=== PATIENT | female | born 1970 ===

== ENCOUNTER 2017-03-18 21:52 | Emergency (ER) | payer SELFPAY ==
[2017-03-18 22:03] VITALS: BP 119/82; PULSE 68; RESP 20; TEMP 98.1; O2SAT 100
[2017-03-18] MEDS ORDERED: Naproxen 550 mg Tab PO STA (22:46)
[2017-03-18] MEDS ORDERED: Naproxen 550 mg Tab PO ONE (22:49)
[2017-03-18 23:04] LABS: RBC URINE 9 /hpf (0-3); URINE BACTERIA MOD (<OCC); URINE BILIRUBIN NEGATIVE (NEGATIVE); URINE BLOOD 2+ (NEGATIVE); URINE COLOR Straw (YELLOW); URINE GLUCOSE (UA) NORMAL (Normal); URINE KETONE NEGATIVE (NEGATIVE); URINE LEUKOCYTE ESTERASE 3+ Leu/uL (Negative); URINE PROTEIN 1+ mg/dL (NEGATIVE); URINE UROBILINOGEN NORMAL mg/dL (0.2-1.0); WBC URINE 50 /hpf (0-5)
--- NOTE | 2017-03-18 23:09 | C.PDOC ---
History Of Present Illness Patient is a 46 y/o female presents to the ER with complaints of dysuria, urinary frequency, and lower abdominal pain that started at 4 pm. Patient states pain is similar to last time when she was diagnosed with kidney stone. Pt states pain radiates to the back. Pt denies any vaginal bleeding, vaginal discharge, fever, n/v/d, or any other associated symptoms at this time. Time Seen by Provider: 03/18/17 22:25 Chief Complaint (Nursing): Abdominal Pain History Per: Patient, [employer] History/Exam Limitations: language barrier Past Medical History Vital Signs: Last Vital Signs Temp 98.1 F 03/18/17 22:00 Pulse 68 03/18/17 22:00 Resp 20 03/18/17 22:00 BP 119/82 03/18/17 22:00 Pulse Ox 100 03/18/17 23:20 - Medical History PMH: Anemia, Gastritis, Kidney Stones, Migraine Denies: Chronic Kidney Disease Surgical History: Endoscopy - [facility] Procedures ANESTH INJECT-SPIN CANAL (02/26/15) BILAT ENDOS OCC TUBE NEC (07/25/15) CERVICAL SPINE X-RAY NEC (02/26/15) COLONOSCOPY (03/01/15) ESOPHAGOGASTRODUODENOSCOPY [EGD] W/CLOSED BIOPSY (03/01/15) INJECT STEROID (02/26/15) OTHER SKIN & SUBQ I D (07/19/14) REMOVAL IUD (07/25/15) SPINAL CANAL INJECT NEC (02/26/15) Family History: States: Unknown Family Hx - Social History Hx Tobacco Use: No Hx Alcohol Use: No Hx Substance Use: No - Immunization History Hx Tetanus Toxoid Vaccination: No Hx Influenza Vaccination: Yes Hx Pneumococcal Vaccination: No Review Of Systems Except As Marked, All Systems Reviewed And Found Negative. Gastrointestinal: Positive for: Abdominal Pain Genitourinary: Positive for: Dysuria, Frequency Physical Exam - Physical Exam Appears: Well, Non-toxic, No Acute Distress Skin: Normal Color, Warm, Dry Head: Atraumatic, Normacephalic Eye(s): bilateral: Normal Inspection, EOMI Nose: Normal Oral Mucosa: Moist Throat: Normal Neck: Normal Chest: Symmetrical Cardiovascular: Rhythm Regular Respiratory: Normal Breath Sounds Gastrointestinal/Abdominal: Soft, Tenderness ((+) RLQ tenderness, suprapubic tenderness), No Distention Back: Normal Inspection, No CVA Tenderness, No Vertebral Tenderness Extremity: Normal ROM Neurological/Psych: Oriented x3, Normal Speech ED Course And Treatment - Laboratory Results Result Diagrams: 03/18/17 23:36 03/18/17 23:36 O2 Sat by Pulse Oximetry: 100 Progress Note: On re-valuation, pain imrpoved. Pt does not want pain medicaiton. Pt remains afebrile. Tolerating PO. Abdomen soft. Discussed signs of concern to return to ER or follow up with PMD in 1-2 days. for reevaluation. Disposition - Disposition Disposition: HOME/ ROUTINE Disposition Time: 22:00 Condition: STABLE - Clinical Impression Clinical Impression: UTI (urinary tract infection)
[2017-03-18] MEDS ORDERED: cefTRIAXone IV 1 gm in Dextros 50 ML IV ONE (23:21)
[2017-03-18] MEDS ORDERED: Sodium Chloride 0.9% 1,000 ML IV ONE (23:21)
[2017-03-18] MEDS ORDERED: Sodium Chloride 0.9% 1,000 ML ONE (23:37)
[2017-03-18] MEDS ORDERED: cefTRIAXone IV 1 gm in Dextros 50 ML IVPB ONE (23:37)
[2017-03-18 23:45] LABS: BASO # 0.1 K/uL (0.0-0.2); BASO % 0.7 % (0.0-2.0); CHLORIDE 99 mmol/L (98-107); EOS # 0.4 K/uL (0.0-0.7); EOS % 3.8 % (0.0-4.0); HEMATOCRIT 35.9 % (34.0-47.0); LYMPH # 2.9 K/uL (1.0-4.3); MEAN CELL VOLUME 88.7 fL (81.0-99.0); MEAN CORPUSCULAR HEMOGLOBIN 29.3 pg (27.0-31.0); MEAN PLATELET VOLUME 8.8 fL (7.2-11.7); MONO # 0.9 K/uL (0.0-0.8); MONO % 8.1 % (0.0-10.0); NRBC % 0.1 % (0.0-2.0); POTASSIUM 3.5 mmol/L (3.6-5.2); RED CELL DISTRIBUTION WIDTH 13.8 % (11.5-14.5); SODIUM 137 mmol/L (132-148)
[2017-03-18 23:47] LABS: WHITE BLOOD COUNT 11.3 K/uL (4.8-10.8)
[2017-03-18 23:48] LABS: ALB/GLOB RATIO 1.4 (1.0-2.1); ALKALINE PHOSPHATASE 61 U/L (38-126); ALT/SGPT 19 U/L (9-52); AST/SGOT 16 U/L (14-36); BILIRUBIN,TOTAL 0.7 mg/dL (0.2-1.3); BLOOD UREA NITROGEN 12 mg/dL (7-17); CARBON DIOXIDE 28 mmol/L (22-30); GFR AFRICAN-AMERICAN > 60; GLUCOSE,RANDOM 89 mg/dL (65-105); TOTAL PROTEIN 7.5 g/dL (6.3-8.3)
[2017-03-18 23:49] LABS: CALCIUM 8.7 mg/dl (8.6-10.4)
[2017-03-19] MEDS ORDERED: Iodixanol 320 MG/ML 100 ML BOTTLE IV ONE (01:03)
--- NOTE | 2017-03-19 01:53 | CT ---
EXAM: CT Abdomen and Pelvis With Intravenous Contrast CLINICAL HISTORY: 46 years old, female; Pain; Abdominal pain; Prior surgery; Surgery type: ; Patient HX: 09-29-15 images sent already; Additional info: Rlq pain TECHNIQUE: Axial computed tomography images of the abdomen and pelvis with intravenous contrast. This CT exam was performed using one or more of the following dose reduction techniques: automated exposure control, adjustment of the mA and/or kV according to patient size, and/or use of iterative reconstruction technique. Coronal and sagittal reformatted images were created and reviewed. CONTRAST: 100 mL of [id number] administered intravenously. EXAM DATE/TIME: 03/18/2017 11:22 PM COMPARISON: CT - ABD PELVIS PO IV CONTRAST 09/29/2015 11:26:07 PM FINDINGS: Lower thorax: Heart size is normal. There is dependent atelectasis in the lung bases. ABDOMEN: Liver: There are poorly defined low attenuation lesions in the inferior right lobe of the liver. There is a small cyst in the left lobe of the liver, unchanged. Gallbladder and bile ducts: unremarkable Pancreas: unremarkable Spleen: unremarkable Adrenals: unremarkable Kidneys and ureters: There is right upper pole renal scarring with dystrophic calcification, unchanged. Stomach and bowel: Stomach is almost completely empty. Rotation is normal. Small bowel is distended with fluid and air. There is no obstruction. Terminal ileum is unremarkable. Appendix is unremarkable. There is moderately stool in the colon.There are degenerative changes in the osseus structures. Appendix: See stomach and bowel PELVIS: Bladder: unremarkable Reproductive: Uterus and adnexal structures are unremarkable. ABDOMEN and PELVIS: Intraperitoneal space: There is free fluid in the pelvis. There is no free air. Bones/joints: There are no acute osseous abnormalities Soft tissues: unremarkable Vasculature: Vascular structures are unremarkable. Lymph nodes: There is no pathologic adenopathy. IMPRESSION: Possible lesions in the right lobe of the liver, evaluation limited by technique; scarring and dystrophic calcification in the upper pole of the right kidney, unchanged; possible ileus, no obstruction; no CT findings of appendicitis; possible constipation; free fluid in the cul-de-sac, physiologic versus recent cyst rupture Additional findings as described above.
== END 2017-03-18 22:25 | disposition home or self-care (01) ==
LOC: C.ER 21:52
DX: N39.0 Urinary tract infection, site not specified (principal)
CPT/HCPCS: 74177; 80053; 81001; 84703; 85025; 87086; 87181; 99283; J0696; J7040

== ENCOUNTER 2018-07-22 23:13 | Emergency (ER) | payer OTHER ==
[2018-07-22 23:13] VITALS: BMI 26.6
[2018-07-22 23:34] VITALS: RESP 20; O2SAT 99
[2018-07-22] MEDS ORDERED: Sodium Chloride 0.9% 1,000 ML IV ONE (23:43)
[2018-07-22 23:52] LABS: SQUAMOUS EPITHIAL 2 /hpf (0-5); URINE BACTERIA MOD (<OCC); URINE BILIRUBIN NEGATIVE (NEGATIVE); URINE BLOOD 2+ (NEGATIVE); URINE CLARITY Turbid (Clear); URINE COLOR YELLOW (YELLOW); URINE GLUCOSE (UA) NORMAL (Normal); URINE LEUKOCYTE ESTERASE 3+ Leu/uL (Negative); URINE PROTEIN 2+ mg/dL (NEGATIVE); URINE UROBILINOGEN NORMAL mg/dL (0.2-1.0); WBC CLUMPS MANY /hpf
--- NOTE | 2018-07-22 23:53 | C.PDOC ---
History Of Present Illness 47-year-old female presents to the ED for evaluation of urinary frequency and hesitancy, dysuria and suprapubic abdominal pain which began around 3 days ago. Patient also reports subjective chills and generalized myalgias. She denies documented fever, chest pain, shortness of breath, vomiting, diarrhea, constipation, or vaginal bleeding/discharge. Time Seen by Provider: 07/22/18 23:34 Chief Complaint (Nursing): Abdominal Pain History Per: Patient History/Exam Limitations: no limitations Onset/Duration Of Symptoms: Days (3) Current Symptoms Are (Timing): Still Present Location Of Pain/Discomfort: Suprapubic Radiation Of Pain To:: None Quality Of Discomfort: "Pain" Associated Symptoms: Chills, Urinary Symptoms. denies: Fever, Vomiting, Diarrhea Additional History Per: Patient Abnormal Vaginal Bleeding: No Past Medical History Reviewed: Historical Data, Nursing Documentation, Vital Signs Vital Signs: Last Vital Signs Temp 98.4 F 07/22/18 23:17 Pulse 84 07/22/18 23:17 Resp 20 07/22/18 23:17 BP 108/75 07/22/18 23:17 Pulse Ox 99 07/23/18 00:35 - Medical History PMH: Anemia, Gastritis, Kidney Stones, Migraine, Chronic Kidney Disease Surgical History: Endoscopy - [facility] Procedures ANESTH INJECT-SPIN CANAL (02/26/15) BILAT ENDOS OCC TUBE NEC (07/25/15) CERVICAL SPINE X-RAY NEC (02/26/15) COLONOSCOPY (03/01/15) ESOPHAGOGASTRODUODENOSCOPY [EGD] W/CLOSED BIOPSY (03/01/15) INJECT STEROID (02/26/15) OTHER SKIN & SUBQ I D (07/19/14) REMOVAL IUD (07/25/15) SPINAL CANAL INJECT NEC (02/26/15) Family History: States: Unknown Family Hx - Social History Hx Tobacco Use: No Hx Alcohol Use: No Hx Substance Use: No - Immunization History Hx Tetanus Toxoid Vaccination: No Hx Influenza Vaccination: Yes Hx Pneumococcal Vaccination: No Review Of Systems Constitutional: Positive for: Chills. Negative for: Fever Cardiovascular: Negative for: Chest Pain Respiratory: Negative for: Shortness of Breath Gastrointestinal: Positive for: Abdominal Pain (suprapubic ). Negative for: Vomiting, Diarrhea Genitourinary: Positive for: Dysuria, Frequency, Other (hesitancy ). Negative for: Vaginal Discharge, Vaginal Bleeding Musculoskeletal: Positive for: Other (generalized myalgias ) Physical Exam - Physical Exam Appears: Non-toxic, No Acute Distress Skin: Normal Color, Warm, Dry Head: Atraumatic, Normacephalic Eye(s): bilateral: Normal Inspection Oral Mucosa: Moist Neck: Supple Chest: Symmetrical, No Deformity, No Tenderness Cardiovascular: Rhythm Regular, No Murmur Respiratory: Normal Breath Sounds, No Rales, No Rhonchi, No Wheezing Gastrointestinal/Abdominal: Soft, No Tenderness (suprapubic ), No Guarding, No Rebound Back: No CVA Tenderness Extremity: Normal ROM, Capillary Refill (less than 2 seconds ) Neurological/Psych: Oriented x3, Normal Speech, Normal Cognition ED Course And Treatment - Laboratory Results Result Diagrams: 07/22/18 23:54 07/22/18 23:54 O2 Sat by Pulse Oximetry: 99 (on RA) Pulse Ox Interpretation: Normal Medical Decision Making Medical Decision Making: Progress: Bloodwork and urinalysis were ordered and reviewed. Pyridium PO, Toradol IVP and IV Fluids given. 12:28AM She is afebrile and well appearing. She was given 1st dose of antibiotics in ED. She was tolerating po in ED. She reports that she feels better after toradol. She was instructed to take antibiotics and follow-up with PMD. Explanation given with occitan speaking nurse and patient reports understanding. Disposition - Disposition Referrals: [facility] [Outside] Disposition: HOME/ ROUTINE Disposition Time: 00:06 Condition: GOOD Additional Instructions: Follow-up with PMD Dr. Rowe within 2 days. Take full course of antibiotics. Return to ED if condition worsens. Prescriptions: Cephalexin [Keflex] 500 mg PO Q6 #40 capsule Phenazopyridine HCl [Pyridium] 100 mg PO TID #6 tablet Instructions: Urinary Tract Infections in Adults, Phenazopyridine Forms: [facility] (Sao T[place]an), Work Excuse Print Language: SLOVENIAN - Clinical Impression Clinical Impression: UTI (urinary tract infection) - Scribe Statement The provider has reviewed the documentation as recorded by the Scribe (Anabella Orozco) Provider Attestation: All medical record entries made by the Scribe were at my direction and personally dictated by me. I have reviewed the chart and agree that the record accurately reflects my personal performance of the history, physical exam, medical decision making, and the department course for this patient. I have also personally directed, reviewed, and agree with the discharge instructions and disposition.
[2018-07-22] MEDS ORDERED: Sodium Chloride 0.9% 1,000 ML ONE (23:56)
[2018-07-22 23:59] LABS: BASO # 0.1 K/uL (0.0-0.2); BASO % 0.5 % (0.0-2.0); EOS # 0.2 K/uL (0.0-0.7); EOS % 1.8 % (0.0-4.0); HEMOGLOBIN 10.5 g/dL (11.0-16.0); LYMPH # 2.1 K/uL (1.0-4.3); LYMPH % 16.6 % (20.0-40.0); MEAN CELL VOLUME 85.1 fL (81.0-99.0); MEAN CORPUSCULAR HEMOGLOBIN 28.5 pg (27.0-31.0); MEAN CORPUSCULAR HGB CONC 33.5 g/dL (33.0-37.0); MEAN PLATELET VOLUME 8.2 fL (7.2-11.7); MONO # 1.4 K/uL (0.0-0.8); MONO % 10.6 % (0.0-10.0); NEUT % 70.5 % (50.0-75.0); RBC 3.69 Mil/uL (3.80-5.20); RED CELL DISTRIBUTION WIDTH 13.8 % (11.5-14.5); WHITE BLOOD COUNT 12.8 K/uL (4.8-10.8)
[2018-07-23] MEDS ORDERED: cefTRIAXone 1 gm 1 GM/100 ML BAG IVPB ONE (00:07)
[2018-07-23 00:33] LABS: ALB/GLOB RATIO 1.3 (1.0-2.1); ALT/SGPT 24 U/L (9-52); AST/SGOT 12 U/L (14-36); BLOOD UREA NITROGEN 15 mg/dL (7-17); GFR NON-AFRICAN AMERICAN > 60; LIPASE 77 U/L (23-300)
[2018-07-23 01:10] VITALS: BP 90/55; PULSE 85; TEMP 98.9
== END 2018-07-23 01:10 | disposition home or self-care (01) ==
LOC: C.ER 23:13
DX: N39.0 Urinary tract infection, site not specified (principal); N18.9 Chronic kidney disease, unspecified; Z87.442 Personal history of urinary calculi
CPT/HCPCS: 80053; 81001; 83690; 85025; 87086; 87181; 96365; 96375; 99285; J0696; J1885; J7030

== ENCOUNTER 2018-11-02 13:03 | Emergency (ER) | payer OTHER ==
[2018-11-02 13:09] VITALS: BMI 23.3
[2018-11-02] MEDS ORDERED: Sodium Chloride 0.9% 1,000 ML IV STA (14:46)
[2018-11-02] MEDS ORDERED: Alum-Mag Hydrox-Simethicone Susp (30 mL) PO STA (14:46)
--- NOTE | 2018-11-02 15:01 | C.PDOC ---
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 Patient states she took an ibuprofen for a typical headache and afterwards began having epigastric pain with vomiting and diarrhea. Patient states she takes famotidine as needed. Reports vomiting many times and afterwards began having vomiting with bright red tinged contents. Denies any coffee grounds or black emesis. Also reports NB diarrhea. She also reports a rash that developed on her face. Denies fever, chills, chest pain, neck stiffness, dysuria. Time Seen by Provider: 11/02/18 13:46 Chief Complaint (Nursing): Abdominal Pain Past Medical History Vital Signs: Last Vital Signs Temp 98.4 F 11/02/18 13:09 Pulse 84 11/02/18 13:09 Resp 18 11/02/18 13:09 BP 115/76 11/02/18 13:09 Pulse Ox 99 11/02/18 13:09 - Medical History PMH: Anemia, Gastritis, Kidney Stones, Migraine, Chronic Kidney Disease Surgical History: Endoscopy - [facility] Procedures ANESTH INJECT-SPIN CANAL (02/26/15) BILAT ENDOS OCC TUBE NEC (07/25/15) CERVICAL SPINE X-RAY NEC (02/26/15) COLONOSCOPY (03/01/15) ESOPHAGOGASTRODUODENOSCOPY [EGD] W/CLOSED BIOPSY (03/01/15) INJECT STEROID (02/26/15) OTHER SKIN & SUBQ I D (07/19/14) REMOVAL IUD (07/25/15) SPINAL CANAL INJECT NEC (02/26/15) Family History: States: Unknown Family Hx - Social History Hx Tobacco Use: No Hx Alcohol Use: No Hx Substance Use: No - Immunization History Hx Tetanus Toxoid Vaccination: No Hx Influenza Vaccination: No Hx Pneumococcal Vaccination: No Review Of Systems Except As Marked, All Systems Reviewed And Found Negative. Constitutional: Negative for: Fever Cardiovascular: Negative for: Chest Pain Physical Exam - Physical Exam Additional Physical Exam Comments: Gen: NAD Head: NC/AT Eyes: PERRL ENT: MMM Chest: No tenderness CV: Regular rate Lungs: CTA b/l Skin: Facial petechiae. Abdomen: Soft. Epigastric tenderness without rebound or guarding. Neck: No nuchal rigidity. Back: No CVA tenderness Extremities: No edema or tenderness Neuro: Alert, no focal deficit ED Course And Treatment - Laboratory Results Result Diagrams: 11/02/18 15:04 11/02/18 15:04 O2 Sat by Pulse Oximetry: 99 Medical Decision Making Medical Decision Making: FINDINGS: LUNGS: No focal consolidation. Please note that chest x-ray has limited sensitivity for the detection of pulmonary masses. PLEURA: No significant pleural effusion identified. No definite pneumothorax . CARDIOVASCULAR: Heart size appears within normal limits. No atherosclerotic calcification present. OSSEOUS STRUCTURES: No acute osseous abnormality identified. VISUALIZED UPPER ABDOMEN: Unremarkable. OTHER FINDINGS: None. IMPRESSION: No focal consolidation identified. Hb at patient's baseline. Normal BUN. Vitals normal. Will discharge home, f/u PMD, return to ED for worsening pain, bleeding, intractible vomiting, or any other problem. Disposition - Disposition Referrals: Aide Rowe MD [Staff Provider] - Disposition: HOME/ ROUTINE Disposition Time: 15:32 Condition: STABLE Prescriptions: Ondansetron ODT [Zofran ODT] 8 mg PO Q8H PRN #12 odt PRN Reason: Nausea/Vomiting Instructions: Viral Gastroenteritis Forms: [facility] (Chilean), Work Excuse - Clinical Impression Clinical Impression: Vomiting, Diarrhea, Petechiae, Katty-Dykes tear
[2018-11-02 15:09] LABS: BASO % 0.6 % (0.0-2.0); EOS # 0.2 K/uL (0.0-0.7); EOS % 2.8 % (0.0-4.0); LYMPH # 1.4 K/uL (1.0-4.3); LYMPH % 19.9 % (20.0-40.0); MEAN CELL VOLUME 87.9 fL (81.0-99.0); MEAN CORPUSCULAR HEMOGLOBIN 29.3 pg (27.0-31.0); MEAN CORPUSCULAR HGB CONC 33.3 g/dL (33.0-37.0); MEAN PLATELET VOLUME 9.4 fL (7.2-11.7); MONO # 0.7 K/uL (0.0-0.8); MONO % 9.9 % (0.0-10.0); NEUT # 4.7 K/uL (1.8-7.0); NEUT % 66.8 % (50.0-75.0); NRBC % 0.1 % (0.0-2.0); RBC 3.76 Mil/uL (3.80-5.20); RED CELL DISTRIBUTION WIDTH 13.9 % (11.5-14.5)
[2018-11-02] MEDS ORDERED: Sodium Chloride 0.9% 1,000 ML ONE (15:09)
[2018-11-02] MEDS ORDERED: Alum-Mag Hydrox-Simethicone Susp (30 mL) ONE (15:09)
[2018-11-02 15:12] LABS: SQUAMOUS EPITHIAL 1 /hpf (0-5); URINE BACTERIA RARE (<OCC); URINE BILIRUBIN NEGATIVE (NEGATIVE); URINE BLOOD 2+ (NEGATIVE); URINE CLARITY Clear (Clear); URINE COLOR Yellow (YELLOW); URINE GLUCOSE (UA) NORMAL (Normal); URINE LEUKOCYTE ESTERASE NEG Leu/uL (Negative); URINE PROTEIN NEGATIVE (NEGATIVE); URINE UROBILINOGEN NORMAL mg/dL (0.2-1.0)
[2018-11-02 15:14] LABS: HCG,QUALITATIVE URINE NEGATIVE (NEGATIVE)
[2018-11-02 15:24] LABS: ALB/GLOB RATIO 1.5 (1.0-2.1); ALBUMIN 4.4 g/dL (3.5-5.0); ALT/SGPT 30 U/L (9-52); AST/SGOT 30 U/L (14-36); BLOOD UREA NITROGEN 11 mg/dL (7-17); CALCIUM 8.8 mg/dl (8.6-10.4); GFR NON-AFRICAN AMERICAN > 60; LIPASE 68 U/L (23-300)
[2018-11-02 15:51] VITALS: BP 98/62; PULSE 71; RESP 19; TEMP 98.1; O2SAT 100
== END 2018-11-02 15:58 | disposition home or self-care (01) ==
LOC: C.ER 13:03
DX: K22.6 Gastro-esophageal laceration-hemorrhage syndrome (principal); R19.7 Diarrhea, unspecified; R23.3 Spontaneous ecchymoses; R11.10 Vomiting, unspecified
CPT/HCPCS: 71046; 80053; 81001; 83690; 84703; 85025; 86850; 86900; 87086; 96361; 96374; 96375; 99284; J2405; J7030